=== PATIENT | female | born 1960 | race American Indian/Alaskan Native ===

== ENCOUNTER 2025-02-01 18:47 | Emergency (ER) | payer MEDICARE, OTHER ==
[2025-02-01 19:20] VITALS: BP 158/63; PULSE 59
== END 2025-02-01 19:48 | disposition home or self-care (01) ==
LOC: DL.ED 18:47
DX: S61.012A Laceration without foreign body of left thumb without damage to nail, initial encounter (principal); I25.10 Atherosclerotic heart disease of native coronary artery without angina pectoris; E78.00 Pure hypercholesterolemia, unspecified; I10 Essential (primary) hypertension; I25.2 Old myocardial infarction; Z86.73 Personal history of transient ischemic attack (TIA), and cerebral infarction without residual deficits; Z79.4 Long term (current) use of insulin; Z79.899 Other long term (current) drug therapy; Z79.01 Long term (current) use of anticoagulants; Z79.82 Long term (current) use of aspirin; Z79.84 Long term (current) use of oral hypoglycemic drugs; W26.8XXA Contact with other sharp object(s), not elsewhere classified, initial encounter; Y93.89 Activity, other specified
CPT/HCPCS: 12001; 99282